=== PATIENT | female | born 1975 | race African-American/Black ===

== ENCOUNTER 2021-01-29 21:26 | Inpatient (IN) | payer OTHER ==
[2021-01-29] MEDS ORDERED: predniSONE 20 MG TABLET (UD) PO ONE (22:17)
[2021-01-29] MEDS ORDERED: predniSONE 20 MG TABLET (UD) ONE (22:23)
[2021-01-29] MEDS ORDERED: ALBUTEROL SO4 2.5/IPRATROPIUM 0.5 INH SOL 3 ML VIAL.NEB. NEB ONE (22:23)
[2021-01-29] MEDS ORDERED: MAGNESIUM 1GM/D5W - 1 GM/100 ML IVPB IVPB ONE (22:35)
[2021-01-29] MEDS ORDERED: methylPREDNISolone NA SUCC 125 MG/2 ML VIAL ONE (22:35)
[2021-01-29] MEDS ORDERED: methylPREDNISolone NA SUCC 125 MG/2 ML VIAL IVPB ONE (22:36)
[2021-01-29] MEDS: ALBUTEROL SO4 2.5/IPRATROPIUM 0.5 INH SOL 3 ML VIAL.NEB. NEB SCH (22:49)
[2021-01-29 22:57] LABS: ADD RBC MORPHOLOGY YES; HEMATOCRIT 26.9 % (32.4-45.2); HEMOGLOBIN 8.5 GM/dL (10.7-15.3); MCH 19.8 pg (25.7-33.7); MCHC 31.4 g/dl (32.0-36.0); MEAN CELL VOLUME 63.1 fl (80-96); MEAN PLT VOLUME 8.1 fl (7.5-11.1); PLATELET COUNT 285 10^3/uL (134-434); RBC 4.27 M/mm3 (3.60-5.2); WHITE BLOOD COUNT 12.4 K/mm3 (4.0-10.0)
[2021-01-29 23:05] LABS: CHLORIDE 111 mmol/L (98-107); SODIUM 139 mmol/L (136-145)
[2021-01-29 23:07] LABS: CALCIUM 9.4 mg/dL (8.5-10.1)
[2021-01-29 23:08] LABS: ALBUMIN 3.5 g/dl (3.4-5.0); ANION GAP 6 MMOL/L (8-16); BLOOD UREA NITROGEN 9.4 mg/dL (7-18); CO2 22 mmol/L (21-32); GLUCOSE,RANDOM 105 mg/dL (74-106)
[2021-01-29 23:11] LABS: SGOT/AST 35 U/L (15-37); SGPT/ALT 26 U/L (13-61)
[2021-01-29 23:12] LABS: BILIRUBIN,TOTAL 0.6 mg/dL (0.2-1)
[2021-01-29 23:13] LABS: TOT PROT 7.7 g/dl (6.4-8.2)
[2021-01-29 23:14] LABS: ALK PHOS 63 U/L (45-117)
[2021-01-29 23:28] LABS: ANISOCYTOSIS 3+; MACROCYTOSIS 0; OVALOCYTE 1+; PLATELET ESTIMATE NORMAL; TARGET CELLS 1+
[2021-01-30] MEDS ORDERED: AZITHROMYCIN IVPB 500 MG in DEXTROSE 5%-WATER - 250 ML IVPB ONE ×2 (02:41→04:53)
[2021-01-30] MEDS ORDERED: CEFTRIAXONE 1 GM in DEXTROSE 5%-WATER - 100 ML IVPB ONE (02:41)
[2021-01-30] MEDS ORDERED: BENZOCAINE/MENTH/CETYLPYRD CL 1 EACH LOZENGE MM PRN (02:43)
[2021-01-30] MEDS: ALBUTEROL SO4 2.5/IPRATROPIUM 0.5 INH SOL 3 ML VIAL.NEB. NEB SCH (02:57)
[2021-01-30] MEDS ORDERED: AZITHROMYCIN IVPB 500 MG/250 ML BAG IVPB ONE (03:00)
[2021-01-30] MEDS ORDERED: CEFTRIAXONE 1 GM/50 ML BAG ONE ×2 (03:00→08:45)
[2021-01-30] MEDS ORDERED: ACETAMINOPHEN 1000 MG/100 ML VIAL IVPB ONE (03:42)
[2021-01-30] MEDS ORDERED: ACETAMINOPHEN INJECTION 100 ML IVPB ONE (03:46)
[2021-01-30] MEDS ORDERED: ACETAMINOPHEN 1000 MG/100 ML VIAL IVPB PRN (05:00)
[2021-01-30 06:43] LABS: HEMATOCRIT 27.7 % (32.4-45.2); HEMOGLOBIN 8.6 GM/dL (10.7-15.3); MEAN PLT VOLUME 8.7 fl (7.5-11.1); PLATELET COUNT 315 10^3/uL (134-434); RBC 4.32 M/mm3 (3.60-5.2); RDW 21.1 % (11.6-15.6); WHITE BLOOD COUNT 12.9 K/mm3 (4.0-10.0)
[2021-01-30 06:49] LABS: MCH 19.8 pg (25.7-33.7)
[2021-01-30 07:03] LABS: CALCIUM 9.8 mg/dL (8.5-10.1); IRON SERUM 14 ug/dL (50-175); TOTAL IRON BINDING CAPACITY 466 ug/dL (250-450)
[2021-01-30 07:04] LABS: ALBUMIN 3.6 g/dl (3.4-5.0); BLOOD UREA NITROGEN 8.6 mg/dL (7-18)
[2021-01-30 07:05] LABS: MAGNESIUM 2.5 mg/dL (1.8-2.4)
[2021-01-30 07:07] LABS: PHOSPHOROUS 2.3 mg/dL (2.5-4.9)
[2021-01-30 07:08] LABS: BILIRUBIN,TOTAL 0.4 mg/dL (0.2-1)
[2021-01-30 07:09] LABS: TOT PROT 8.1 g/dl (6.4-8.2)
[2021-01-30] MEDS ORDERED: ALBUTEROL SO4 HFA INHALER IH ONE (08:26)
[2021-01-30] MEDS ORDERED: methylPREDNISolone NA SUCC 40 MG/1 ML VIAL ONE (08:45)
[2021-01-30] MEDS: methylPREDNISolone NA SUCC 40 MG/1 ML VIAL IVPUSH SCH ×2 (09:01→17:19)
[2021-01-30] MEDS: CEFTRIAXONE 1 GM in DEXTROSE 5%-WATER - 50 ML IVPB SCH (09:01)
[2021-01-30] MEDS: BUDESONIDE/FORMETEROL FUMARATE 80/4.5 mcg INHALER IH SCH ×2 (09:10→21:10)
[2021-01-30 09:29] LABS: ANISOCYTOSIS 1+; MACROCYTOSIS 0; PLATELET ESTIMATE NORMAL
[2021-01-30] MEDS ORDERED: ALBUTEROL SO4 2.5/IPRATROPIUM 0.5 INH SOL 3 ML VIAL.NEB. NEB PRN (09:31)
[2021-01-30 12:20] VITALS: BMI 32.8
[2021-01-30] MEDS: SODIUM PHOSPHATE - 30 MM in SODIUM CHLORIDE 250 ML IVPB ONE ×2 (18:07→21:10)
[2021-01-30] MEDS ORDERED: FERRIC CARBOXYMALTOSE 750 MG in SODIUM CHLORIDE 250 ML IVPB ONE (18:30)
[2021-01-30] MEDS: ALBUTEROL SO4 0.083% IH SOL 2.5 MG/3 ML VIAL.NEB. NEB SCH (20:18)
[2021-01-30] MEDS ORDERED: ATORVASTATIN CA 20 MG TABLET (FP) PO SCH (22:00)
[2021-01-31] MEDS: methylPREDNISolone NA SUCC 40 MG/1 ML VIAL IVPUSH SCH ×2 (01:07→10:37)
[2021-01-31] MEDS: ALBUTEROL SO4 0.083% IH SOL 2.5 MG/3 ML VIAL.NEB. NEB SCH ×4 (07:16→19:54)
[2021-01-31 08:11] LABS: BASO % 0.1 % (0-2.0); HEMATOCRIT 26.9 % (32.4-45.2); HEMOGLOBIN 8.4 GM/dL (10.7-15.3); LYMPH % 1.5 % (8-40); MCHC 31.3 g/dl (32.0-36.0); MEAN CELL VOLUME 63.3 fl (80-96); MEAN PLT VOLUME 8.7 fl (7.5-11.1); MONO % 2.3 % (3.8-10.2); NEUT % 96.1 % (42.8-82.8); PLATELET COUNT 325 10^3/uL (134-434); RBC 4.24 M/mm3 (3.60-5.2); RDW 21.2 % (11.6-15.6); WHITE BLOOD COUNT 16.3 K/mm3 (4.0-10.0)
[2021-01-31 08:14] LABS: MCH 19.8 pg (25.7-33.7)
[2021-01-31 08:35] LABS: ALBUMIN 3.4 g/dl (3.4-5.0); BLOOD UREA NITROGEN 12.8 mg/dL (7-18); CALCIUM 9.6 mg/dL (8.5-10.1); MAGNESIUM 2.3 mg/dL (1.8-2.4)
[2021-01-31 08:38] LABS: CREATININE 1.3 mg/dL (0.55-1.3)
[2021-01-31 08:39] LABS: PHOSPHOROUS 3.7 mg/dL (2.5-4.9)
[2021-01-31 08:40] LABS: BILIRUBIN,TOTAL 0.2 mg/dL (0.2-1); TOT PROT 7.7 g/dl (6.4-8.2)
[2021-01-31] MEDS ORDERED: DEXTROSE 5%-WATER - 50 ML IVPB ONE (10:34)
[2021-01-31] MEDS ORDERED: PT OWN MED DRAWER 7, Y5N ONE ×2 (10:34→14:18)
[2021-01-31] MEDS ORDERED: cefTRIAXone SODIUM 1 GM VIAL ONE (10:34)
[2021-01-31] MEDS: CEFTRIAXONE 1 GM in DEXTROSE 5%-WATER - 50 ML IVPB SCH (10:37)
[2021-01-31] MEDS: AZITHROMYCIN IVPB 500 MG/250 ML BAG IVPB SCH (10:42)
[2021-01-31 11:15] LABS: ANISOCYTOSIS 1+; MACROCYTOSIS 0; OVALOCYTE 1+; PLATELET ESTIMATE NORMAL; TOXIC GRANULATION 2+
[2021-01-31] MEDS ORDERED: FERROUS SO4 325 MG TABLET (FP) PO SCH (14:00)
[2021-01-31] MEDS: BUDESONIDE/FORMETEROL FUMARATE 80/4.5 mcg INHALER IH SCH ×2 (14:29→22:25)
[2021-02-01] MEDS ORDERED: ACETAMINOPHEN 325 MG TABLET (FP) PO ONE (00:10)
[2021-02-01] MEDS ORDERED: morphine SULFATE 4 MG/ML VIAL IVPUSH ONE (01:51)
[2021-02-01] MEDS ORDERED: LABETALOL HCL 200 MG TABLET (FP) PO ONE (01:56)
[2021-02-01 08:48] LABS: HEMATOCRIT 26.4 % (32.4-45.2); HEMOGLOBIN 8.1 GM/dL (10.7-15.3); MCHC 30.9 g/dl (32.0-36.0); MEAN CELL VOLUME 64.1 fl (80-96); MEAN PLT VOLUME 8.4 fl (7.5-11.1); PLATELET COUNT 330 10^3/uL (134-434); RBC 4.11 M/mm3 (3.60-5.2); RDW 21.4 % (11.6-15.6); WHITE BLOOD COUNT 16.9 K/mm3 (4.0-10.0)
[2021-02-01 08:50] LABS: MCH 19.8 pg (25.7-33.7)
[2021-02-01] MEDS: ALBUTEROL SO4 0.083% IH SOL 2.5 MG/3 ML VIAL.NEB. NEB SCH ×4 (09:01→19:23)
[2021-02-01 09:13] LABS: ALBUMIN 3.2 g/dl (3.4-5.0); BLOOD UREA NITROGEN 12.9 mg/dL (7-18); CALCIUM 9.7 mg/dL (8.5-10.1)
[2021-02-01 09:18] LABS: BILIRUBIN,TOTAL 0.3 mg/dL (0.2-1)
[2021-02-01 09:19] LABS: TOT PROT 7.2 g/dl (6.4-8.2)
[2021-02-01] MEDS ORDERED: ACETAMINOPHEN 1000 MG/100 ML VIAL IVPB ONE ×2 (10:45→18:15)
[2021-02-01] MEDS ORDERED: DEXTROSE 5%-WATER - 50 ML IVPB ONE (10:50)
[2021-02-01] MEDS ORDERED: cefTRIAXone SODIUM 1 GM VIAL ONE (10:50)
[2021-02-01] MEDS: AZITHROMYCIN IVPB 500 MG/250 ML BAG IVPB SCH (10:58)
[2021-02-01] MEDS: CEFTRIAXONE 1 GM in DEXTROSE 5%-WATER - 50 ML IVPB SCH (10:58)
[2021-02-01] MEDS: BUDESONIDE/FORMETEROL FUMARATE 80/4.5 mcg INHALER IH SCH ×2 (11:04→21:15)
[2021-02-01] MEDS: BENZOCAINE/MENTH/CETYLPYRD CL 1 EACH LOZENGE MM PRN (18:26)
[2021-02-02] MEDS: ALBUTEROL SO4 0.083% IH SOL 2.5 MG/3 ML VIAL.NEB. NEB SCH ×3 (08:08→15:41)
[2021-02-02 08:51] LABS: HEMATOCRIT 28.3 % (32.4-45.2); HEMOGLOBIN 8.8 GM/dL (10.7-15.3); MEAN CELL VOLUME 64.4 fl (80-96); MEAN PLT VOLUME 8.2 fl (7.5-11.1); PLATELET COUNT 344 10^3/uL (134-434); RBC 4.39 M/mm3 (3.60-5.2); RDW 21.5 % (11.6-15.6); WHITE BLOOD COUNT 11.3 K/mm3 (4.0-10.0)
[2021-02-02 09:26] LABS: CALCIUM 9.4 mg/dL (8.5-10.1)
[2021-02-02 09:30] LABS: CREATININE 0.9 mg/dL (0.55-1.3)
[2021-02-02 09:31] LABS: BILIRUBIN,TOTAL 0.4 mg/dL (0.2-1); TOT PROT 7.1 g/dl (6.4-8.2)
[2021-02-02] MEDS: AZITHROMYCIN IVPB 500 MG/250 ML BAG IVPB SCH (09:56)
[2021-02-02] MEDS: BUDESONIDE/FORMETEROL FUMARATE 80/4.5 mcg INHALER IH SCH (09:57)
[2021-02-02] MEDS ORDERED: PT OWN MED DRAWER 7, Y5N ONE (09:59)
[2021-02-02] MEDS: BENZOCAINE/MENTH/CETYLPYRD CL 1 EACH LOZENGE MM PRN (10:02)
[2021-02-02 14:39] VITALS: BP 135/60; PULSE 91; TEMP 98.3
== END 2021-02-02 19:58 | disposition home or self-care (01) | DRG 139 ==
LOC: JER 21:26 → JERBED 01-30 02:46 → J7W 01-30 10:00
PROVIDERS: ADMIT Internal Medicine; ATTEND Internal Medicine
DX: J18.9 Pneumonia, unspecified organism (principal); J96.01 Acute respiratory failure with hypoxia; R19.7 Diarrhea, unspecified; D64.9 Anemia, unspecified; F17.210 Nicotine dependence, cigarettes, uncomplicated; J45.901 Unspecified asthma with (acute) exacerbation; D25.9 Leiomyoma of uterus, unspecified; F12.90 Cannabis use, unspecified, uncomplicated; Z86.718 Personal history of other venous thrombosis and embolism
CPT/HCPCS: 36415; 71045-TC-FY; 71250-TC; 71275-TC; 80053; 83540; 83550; 83615; 83735; 83880; 84100; 84484; 84703; 85025; 85027; 85379; 85651; 86140; 86769; 87045; 87046; 87070; 87205; 87324; 87449; 87804; 87807; 87899; 93005; 93010; 93970-TC; 94640; 94761; 99285-25; C9803; J0131; J1439; Q9967; U0003; U0005

== ENCOUNTER 2023-03-09 14:36 | Emergency (ER) | payer OTHER ==
[2023-03-09 14:55] VITALS: BP 138/79; PULSE 79; RESP 18; TEMP 98.6; BMI 30.7
[2023-03-09 18:01] LABS: THROAT:GRP A STREP NOT DETECTED (NOTDETECTED)
== END 2023-03-09 17:51 | disposition home or self-care (01) ==
LOC: JERFT 14:36
DX: J02.9 Acute pharyngitis, unspecified (principal); R07.0 Pain in throat; R13.10 Dysphagia, unspecified; R05.9 Cough, unspecified; R22.1 Localized swelling, mass and lump, neck; R09.81 Nasal congestion; J18.9 Pneumonia, unspecified organism; Z20.822 Contact with and (suspected) exposure to COVID-19
CPT/HCPCS: 0241U-QW; 70360-TC-FY; 71046-TC-FY; 87651; 99284-25

== ENCOUNTER 2024-09-09 17:15 | Emergency (ER) | payer OTHER ==
[2024-09-09 17:40] VITALS: BP 142/74; PULSE 65; RESP 18; TEMP 98.6; BMI 32.3
[2024-09-09] MEDS ORDERED: ONDANSETRON 4 MG/2 ML VIAL ONE (20:21)
[2024-09-09] MEDS ORDERED: FAMOTIDINE 20 MG/50 ML IVPB 20 MG/50 ML MG IVPB ONE (20:21)
[2024-09-09] MEDS ORDERED: ACETAMINOPHEN INJECTION 100 ML ONE (20:21)
[2024-09-09] MEDS: ONDANSETRON 4 MG/2 ML VIAL IVPUSH ONE (20:30)
[2024-09-09] MEDS: FAMOTIDINE 20 MG/50 ML IVPB 20 MG/50 ML MG IVPB ONE (20:44)
[2024-09-09] MEDS: ACETAMINOPHEN 1000 MG/100 ML BAG IVPB ONE (20:44)
[2024-09-09 21:00] LABS: ABSOLUTE IMMATURE GRANULOCYTES 0.01 x10^3/uL (0.0-0.031); BASOPHILS # 0.02 x10^3/uL (0.01-0.08); EOSINOPHIL % 0.5 % (0.7-5.8); EOSINOPHILS # 0.03 x10^3/uL (0.04-0.36); HEMATOCRIT 32.6 % (34.1-44.9); HEMOGLOBIN 10.2 g/dL (11.2-15.7); MCHC 31.3 g/dl (32.2-35.5); MEAN CELL VOLUME 71.6 fl (79.4-94.8); MONOCYTE # 0.37 x10^3/uL (0.24-0.86); MONOCYTE % 6.7 % (4.7-12.5); PLATELET COUNT 316 x10^3/uL (182-369); RDW 18.1 % (12.2-17.1)
[2024-09-09 21:01] LABS: URINE APPEARANCE CLEAR; URINE BILIRUBIN NEGATIVE (NEGATIVE); URINE COLOR YELLOW; URINE GLUCOSE (UA) NEGATIVE (NEGATIVE); URINE KETONE NEGATIVE (NEGATIVE); URINE LEUK ESTERASE NEGATIVE (NEGATIVE); URINE NITRITE NEGATIVE (NEGATIVE); URINE PROTEIN NEGATIVE (NEGATIVE); URINE UROBILINOGEN 0.2 mg/dL (0.2-1.0)
[2024-09-09 21:08] LABS: INR 1.03 (0.83-1.09); PROTHROMBIN TIME (PATIENT) 11.3 SEC (9.7-13.0)
[2024-09-09 21:11] LABS: ACTIVATED PTT 30.7 SECONDS (25.2-36.5)
[2024-09-09 21:23] LABS: POTASSIUM 4.2 mmol/L (3.5-5.1)
[2024-09-09 21:25] LABS: ALBUMIN 3.4 g/dl (3.4-5.0); BLOOD UREA NITROGEN 11.7 mg/dL (7-18); CALCIUM 10.3 mg/dL (8.5-10.1); MAGNESIUM 1.9 mg/dL (1.8-2.4)
[2024-09-09 21:29] LABS: CREATININE 0.9 mg/dL (0.55-1.3)
[2024-09-09 21:30] LABS: BILIRUBIN,TOTAL 0.4 mg/dL (0.2-1)
[2024-09-09 21:31] LABS: TOT PROT 7.2 g/dl (6.4-8.2)
[2024-09-09 21:40] LABS: HCG,QUALITATIVE URINE Negative
[2024-09-09 22:19] LABS: HCV DIAGNOSTIC IN-HOUSE W/RFLX NON-REACTIVE (NONREACTIVE); HIV INTERPRETATION NEGATIVE (NEGATIVE)
== END 2024-09-09 23:51 | disposition home or self-care (01) ==
LOC: JER 17:15
PROC: 3E033GC Introduction of Other Therapeutic Substance into Peripheral Vein, Percutaneous Approach (ICD-10-PCS; principal; 2024-09-09)
PROC: 3E033GC Introduction of Other Therapeutic Substance into Peripheral Vein, Percutaneous Approach (ICD-10-PCS; 2024-09-09)
PROC: 3E033NZ Introduction of Analgesics, Hypnotics, Sedatives into Peripheral Vein, Percutaneous Approach (ICD-10-PCS; 2024-09-09)
DX: R10.12 Left upper quadrant pain (principal); R10.13 Epigastric pain; R11.0 Nausea; R19.7 Diarrhea, unspecified
CPT/HCPCS: 0241U-QW; 36415; 71046-TC-FY; 74176-TC; 80053; 81003; 83690; 83735; 84439; 84443; 84484; 84703; 85025; 85610; 85730; 86803; 87086; 87389; 93005; 93010; 96365; 96375; 99285-25